=== PATIENT | female | born 1950 | race Caucasian/White ===

== ENCOUNTER 2016-09-30 05:40 | Day surgery (SDC) | payer OTHER ==
[2016-09-30] VITALS (14 sets, daily range): BP systolic 106–135; BP diastolic 46–75; PULSE 76–96; RESP 10–16; Ht 167.6 cm; Wt 107.2 kg
[~2016-09-30] VITALS: Ht 167.6 cm; Wt 107.2 kg
[2016-09-30] MEDS ORDERED: LIDOCAINE 2% (SDV) 5 ML INJ ONE (06:23)
[2016-09-30] MEDS ORDERED: GLYCOPYRROLATE 0.4 MG INJ ONE (06:23)
[2016-09-30] MEDS ORDERED: DEXAMETHASONE 4 MG/ML 1 ML INJ ONE (06:24)
[2016-09-30] MEDS ORDERED: FENTAnyl 50 MCG/ML VIAL ONE (06:24)
[2016-09-30] MEDS ORDERED: ROCURONIUM 50 MG INJ ONE (06:24)
[2016-09-30] MEDS ORDERED: MIDAZOLAM 1 MG/ML 2 ML INJ ONE (06:24)
[2016-09-30] MEDS ORDERED: NEOSTIGMINE 3 MG/3 ML SYRINGE ONE (06:24)
[2016-09-30] MEDS ORDERED: PROPOFOL 20 ML ONE (06:24)
[2016-09-30] MEDS ORDERED: SUGAMMADEX SODIUM 200 MG/2 ML VIAL IV ONE (06:25)
[2016-09-30] MEDS ORDERED: ONDANSETRON 4 MG INJ ONE (06:25)
[2016-09-30] MEDS ORDERED: EPHEDrine SULFATE 50 MG/5 ML SYG IV PRN (06:30)
[2016-09-30] MEDS ORDERED: hydrALAzine 20 MG INJ IV PRN (06:30)
[2016-09-30] MEDS ORDERED: DIPHENHYDRAMINE 50 MG INJ IV PRN (06:30)
[2016-09-30] MEDS ORDERED: FENTAnyl 50 MCG/ML VIAL IV PRN (06:30)
[2016-09-30] MEDS ORDERED: MEPERIDINE 25 MG INJ IV PRN (06:30)
[2016-09-30] MEDS ORDERED: MIDAZOLAM 1 MG/ML 2 ML INJ IV PRN (06:30)
[2016-09-30] MEDS ORDERED: morphine (1 MG/ML) 10ML SYRINGE IV PRN ×3 (06:30)
[2016-09-30] MEDS ORDERED: ATROPINE 1 MG/10 ML SYRINGE IV PRN (06:30)
[2016-09-30] MEDS ORDERED: HYDROmorphONE (0.2 MG/ML) 10ML SYG IV PRN ×3 (06:30)
[2016-09-30] MEDS ORDERED: OXYCODONE/ACETAMINOPHEN (5/325) TAB PO PRN ×2 (06:30)
[2016-09-30] MEDS ORDERED: LABETALOL HCL 20MG INJ IV PRN (06:30)
[2016-09-30] MEDS ORDERED: ONDANSETRON 4 MG INJ IV PRN (06:30)
[2016-09-30] MEDS ORDERED: OMEP20CA16 PO (06:48)
[2016-09-30] MEDS ORDERED: GLIM4TAB PO (06:48)
[2016-09-30] MEDS ORDERED: AMLO2.5T78 PO (06:48)
[2016-09-30] MEDS ORDERED: LOSA50TA6 PO (06:48)
[2016-09-30] MEDS ORDERED: MTF1000T PO (06:48)
[2016-09-30] MEDS ORDERED: GABA300C16 PO (06:48)
[2016-09-30] MEDS ORDERED: SIMV20TA6 PO (06:48)
[2016-09-30] MEDS ORDERED: LACTATED RINGER'S 1,000 ML IV SCH (07:00)
[2016-09-30] MEDS ORDERED: CEFAZOLIN 1 GM INJ ONE (07:00)
[2016-09-30] MEDS ORDERED: SUCCINYLCHOLINE CHLORIDE 100 MG/5 ML SYG IV ONE (07:24)
[2016-09-30] MEDS ORDERED: LABETALOL HCL 20MG INJ ONE (07:48)
--- NOTE | 2016-09-30 08:33 | OPR ---
Date/Time of Note Date/Time of Note DATE: 09/30/16 TIME: 08:24 Operative Report Free Text/Dictation DATE OF OPERATION: 09/30/2016 PREOPERATIVE DIAGNOSES: 1. Postmenopausal vaginal bleeding 2. Fibroid Uterus POSTOPERATIVE DIAGNOSES: 1. Same OPERATION PERFORMED: Dilation and Curettage Hysteroscopic myomectomy SURGEON: Emerald Alvarado MD ESTIMATED BLOOD LOSS: Minimal Fluid Loss: 750 ml COMPLICATIONS: None. Findings: multiple polyps and small myoma noted. The risks, benefits, indications, alternatives of procedure including, but not limited to risk of infection, bleeding, damage to other organs, bowel, bladder, hernia formation, scar formation, possibility of blood transfusions were discussed with the patient. She was allowed to ask questions. All her questions were answered. Informed consent was obtained. DESCRIPTION OF PROCEDURE: She was taken to the operating room. Spinal anesthesia was induced. She was prepped and draped in the usual dorsal lithotomy sterile fashion. Surgical time out one. Bimanual examination revealed uterus to be 8 weeks in size. Anterior segment of the cervix was grasped with single tooth tenaculum. The cervix was dilated to size 7 Kathryn Dilators. Hysteroscopy was performed. Findings as above noted. Symphion resectoscope was used to resect the Myoma always under direct visualization of the hysteroscope. Sharp curettage was then performed. Tenaculum was removed. there was no bleeding at the end of the procedure. patient tolerated the procedure well. Pt Condition Post Procedure: stable Disposition: PACU EMERALD ALVARADO MD Sep 30, 2016 08:33
[2016-09-30] MEDS: FENTAnyl 50 MCG/ML VIAL IV PRN ×2 (08:49→08:58)
--- NOTE | 2016-10-01 17:10 | RADRPT ---
Vent Rate: 81 bpm RR Interval: 0 msec [place] Interval: 190 msec QRS Duration: 106 msec QT Interval: 372 msec QTC Interval: 432 msec P-R-T [place]: 52 - 55 - 60 degrees Normal sinus rhythm Normal ECG Electronically Signed By: Ellis Mccracken [id number]
== END 2016-09-30 10:44 | disposition home or self-care (01) ==
LOC: SDS 05:40
PROVIDERS: ATTEND Specialist
DX: N95.9 Unspecified menopausal and perimenopausal disorder (principal); D25.9 Leiomyoma of uterus, unspecified; E11.9 Type 2 diabetes mellitus without complications; I10 Essential (primary) hypertension; E78.5 Hyperlipidemia, unspecified
CPT/HCPCS: 58558; 82962; 88305; 93005; J0690; J1100; J2250; J2405; J3010; Z7512; Z7610; J2710; J7999